=== PATIENT | female | born 1995 | race Two or more races ===

== ENCOUNTER 2018-04-20 13:19 | Emergency (ER) | payer MEDICAID, OTHER ==
[~2018-04-20] VITALS: Ht 160 cm; Wt 87.3 kg
[2018-04-20 14:35] LABS: BASOPHILS # (AUTO) 0.09 x10^3/uL (0-0.1); BASOPHILS % (AUTO) 1 % (0-1); EOSINOPHILS # (AUTO) 0.04 x10^3/uL (0-0.4); EOSINOPHILS % (AUTO) 0 % (1-7); LYMPHOCYTES # (AUTO) 3.36 x10^3/uL (1-3.4); LYMPHOCYTES % (AUTO) 25 % (22-44); MD NO; MEAN CORPUSCULAR HEMOGLOBIN 29.7 pg (27.0-34.8); MEAN CORPUSCULAR HGB CONC 33.3 g/dL (32.4-35.8); MEAN CORPUSCULAR VOLUME 89.1 fL (80-100); MEAN PLATELET VOLUME 8.3 fL (7.4-10.4); MONOCYTES # (AUTO) 1.03 x10^3/uL (0.2-0.8); MONOCYTES % (AUTO) 8 % (2-9); NEUTROPHILS % (AUTO) 66 % (42-75); PLATELET COUNT 386 x10^3/uL (130-400); RED BLOOD COUNT 4.95 x10^6/uL (3.82-5.3); RED CELL DISTRIBUTION WIDTH 14.1 % (9.6-15.2)
[2018-04-20 14:44] LABS: ALANINE AMINOTRANSFERASE 215 U/L (12-78); ALBUMIN 4.3 g/dL (3.4-5.0); ANION GAP 7 mmol/L (5-15); CALCIUM 8.6 mg/dL (8.5-10.1); CHLORIDE 104 mmol/L (98-107); CREATININE 0.86 mg/dL (0.55-1.02)
[2018-04-20] MEDS ORDERED: ONDANSETRON ODT 8 MG ONE (14:46)
[2018-04-20] MEDS ORDERED: KETOROLAC 30 MG/1 ML ONE (14:46)
[2018-04-20 14:48] LABS: ALKALINE PHOSPHATASE 70 U/L (45-117); TOTAL PROTEIN 8.7 g/dL (6.4-8.2)
[2018-04-20 14:50] LABS: CULTURE INDICATED? YES; MICROSCOPIC INDICATED
[2018-04-20] MEDS ORDERED: SODIUM CHLORIDE 0.9% 1,000ML IVBOLUS ONE (15:00)
[2018-04-20] MEDS ORDERED: ONDANSETRON ODT 8 MG PO ONE (15:00)
[2018-04-20] MEDS ORDERED: KETOROLAC 30 MG/1 ML IVPush ONE (15:00)
[2018-04-20 15:36] VITALS: BP 136/78
== END 2018-04-20 15:45 | disposition home or self-care (01) ==
LOC: ED 15:40
DX: R11.2 Nausea with vomiting, unspecified (principal); R10.84 Generalized abdominal pain
CPT/HCPCS: 36415; 80053; 81001; 83690; 84703; 85025; 87086; 96361; 96374; 99283; J1885; J7030; Q0162

== ENCOUNTER 2020-02-17 15:59 | Emergency (ER) | payer OTHER ==
[~2020-02-17] VITALS: Ht 160 cm; Wt 86.5 kg
--- NOTE | 2020-02-17 16:26 | NUR ---
PATIENT ARRIVES WITH A RASH THAT BEGAN YESTERDAY MORNING ON HER LEGS, THEN TODAY ITS ALL OVER HER BODY. SMALL RED RAISED BUMPS ALL OVER CHEST AND ARMS/TRUNK AND LEGS. ITCHY.
[2020-02-17] MEDS ORDERED: DIPHENHYDRAMINE 25 MG CAPSULE ONE (16:53)
[2020-02-17] MEDS ORDERED: DEXAMETHASONE 4 MG TABLET ONE (16:53)
[2020-02-17] MEDS ORDERED: FAMOTIDINE 20 MG TABLET ONE (16:55)
[2020-02-17 16:59] VITALS: BP 122/78
[2020-02-17] MEDS ORDERED: DIPHENHYDRAMINE 25 MG CAPSULE PO ONE (17:00)
[2020-02-17] MEDS ORDERED: FAMOTIDINE 20 MG TABLET PO ONE (17:00)
[2020-02-17] MEDS ORDERED: DEXAMETHASONE 4 MG TABLET PO ONE (17:00)
== END 2020-02-17 16:43 | disposition home or self-care (01) ==
LOC: ED 16:35
DX: L50.9 Urticaria, unspecified (principal)
CPT/HCPCS: 99283; Q0163

== ENCOUNTER 2020-03-31 16:54 | Inpatient (IN) | payer OTHER ==
[~2020-03-31] VITALS: Ht 160 cm; Wt 88.8 kg
--- NOTE | 2020-03-31 18:59 | NUR ---
SENIOR TRAINING AND DEVELOPMENT REP: PT. TO ROOM FROM LOBBY.
[2020-03-31 19:13] LABS: BASOPHILS % (AUTO) 1 % (0-1); EOSINOPHILS % (AUTO) 2 % (1-7); LYMPHOCYTES % (AUTO) 15 % (22-44); MEAN CORPUSCULAR HEMOGLOBIN 27.4 pg (27.0-34.8); MEAN CORPUSCULAR HGB CONC 32.8 g/dL (32.4-35.8); MONOCYTES % (AUTO) 7 % (2-9); NEUTROPHILS % (AUTO) 75 % (42-75); PLATELET COUNT 289 x10^3/uL (130-400); RED CELL DISTRIBUTION WIDTH 17.7 % (9.6-15.2)
[2020-03-31 19:14] LABS: MD NO
[2020-03-31 19:24] LABS: ALANINE AMINOTRANSFERASE 105 U/L (12-78); ALBUMIN 3.7 g/dL (3.4-5.0); ANION GAP 6 mmol/L (5-15); CALCIUM 8.6 mg/dL (8.5-10.1); CHLORIDE 101 mmol/L (98-107)
--- NOTE | 2020-03-31 19:27 | NUR ---
DR REECE AT BS FOR EXAM
[2020-03-31 19:30] LABS: ALKALINE PHOSPHATASE 85 U/L (45-117); CREATININE 0.73 mg/dL (0.55-1.02); TOTAL PROTEIN 8.9 g/dL (6.4-8.2)
[2020-03-31] MEDS ORDERED: MAALOX/HYOSCYAMINE/LIDOCAINE 45 ML BTL PO ONE (19:30)
[2020-03-31] MEDS ORDERED: MAALOX/HYOSCYAMINE/LIDOCAINE 45 ML BTL ONE (19:36)
--- NOTE | 2020-03-31 19:45 | NUR ---
EPIGASTRIC PAIN, RADIATING TO BACK; STARTED TUESDAY NOC. PAIN WORSE AFTER EATING TODAY. IBUPROFEN LAST. LAST ORAL: EGG & BANANA THIS MORNING - PAIN AFTER EATING. +NAUSEA, CONSTIPATION. DENIES VOMITING, DIARRHEA. LAST BM: EARLY TODAY: SOFT, BROWN.
[2020-03-31] MEDS ORDERED: ONDANSETRON 2MG/ML, 2ML IVPush ONE (20:30)
[2020-03-31] MEDS ORDERED: LACTATED RINGERS 1,000 ML IVBOLUS ONE (20:30)
[2020-03-31] MEDS ORDERED: morphine SULFATE 10 MG/ML, 1ML IVPush PRN (20:30)
[2020-03-31] MEDS ORDERED: DOCUSATE 100 MG CAPSULE PO PRN (20:30)
[2020-03-31] MEDS ORDERED: ONDANSETRON 2MG/ML, 2ML IVPush PRN (20:30)
[2020-03-31] MEDS ORDERED: LABETALOL 5MG/ML, 20ML IVPush PRN (20:30)
[2020-03-31] MEDS ORDERED: MORPHINE SULFATE 4 MG/ML, 1ML IVPush ONE (20:30)
[2020-03-31] MEDS ORDERED: ONDANSETRON 2MG/ML, 2ML ONE (20:42)
[2020-03-31] MEDS ORDERED: MORPHINE SULFATE 4 MG/ML, 1ML ONE (20:42)
--- NOTE | 2020-03-31 21:35 | NUR ---
AMBULATORY TO & FROM [facility] W/OUT INCIDENT: GAIT STEADY.
--- NOTE | 2020-03-31 22:01 | NUR ---
PT REPORT TO FAWAD DONG FOR ROOM 465
[2020-03-31 22:20] VITALS: BP 111/81
[2020-04-01] MEDS: SODIUM CHLORIDE 0.9% 1,000 ML IV SCH ×4 (00:18→22:47)
[2020-04-01] MEDS: HYDROcodone/APAP 5/325 TABLET PO PRN ×3 (02:11→14:31)
[2020-04-01 02:16] VITALS: BP 112/72
[2020-04-01 05:25] LABS: BASOPHILS % (AUTO) 1 % (0-1); EOSINOPHILS % (AUTO) 5 % (1-7); LYMPHOCYTES % (AUTO) 22 % (22-44); MEAN CORPUSCULAR HEMOGLOBIN 27.4 pg (27.0-34.8); MEAN CORPUSCULAR HGB CONC 32.7 g/dL (32.4-35.8); MEAN PLATELET VOLUME 8.1 fL (7.4-10.4); MONOCYTES % (AUTO) 7 % (2-9); NEUTROPHILS % (AUTO) 66 % (42-75); PLATELET COUNT 238 x10^3/uL (130-400); RED CELL DISTRIBUTION WIDTH 17.6 % (9.6-15.2)
[2020-04-01 05:33] LABS: MD NO
[2020-04-01 05:38] LABS: ALANINE AMINOTRANSFERASE 79 U/L (12-78); ALBUMIN 3.1 g/dL (3.4-5.0); ANION GAP 5 mmol/L (5-15); CALCIUM 8.1 mg/dL (8.5-10.1); CHLORIDE 107 mmol/L (98-107); CREATININE 0.69 mg/dL (0.55-1.02)
[2020-04-01 05:40] LABS: ALKALINE PHOSPHATASE 65 U/L (45-117); BILIRUBIN,TOTAL 1.7 mg/dL (0.2-1.0); TOTAL PROTEIN 7.7 g/dL (6.4-8.2)
[2020-04-01 08:45] VITALS: BP 112/79
[2020-04-01 14:40] VITALS: BP 104/71
[2020-04-01 21:07] VITALS: BP 117/77
[2020-04-02 02:19] VITALS: BP 102/63
[2020-04-02] MEDS: SODIUM CHLORIDE 0.9% 1,000 ML IV SCH (06:19)
[2020-04-02 08:57] VITALS: BP 123/85
[2020-04-02 13:57] VITALS: BP 126/89
== END 2020-04-02 16:15 | disposition home or self-care (01) | DRG 440 ==
LOC: ED 20:35 → EDIP 20:45 → 4NE 22:17 → DCLOUNGE 04-02 15:59
PROVIDERS: ADMIT Family Medicine; ATTEND Family Medicine
DX: K85.20 Alcohol induced acute pancreatitis without necrosis or infection (principal); F10.10 Alcohol abuse, uncomplicated; F32.9 Major depressive disorder, single episode, unspecified; K70.10 Alcoholic hepatitis without ascites; K76.0 Fatty (change of) liver, not elsewhere classified
CPT/HCPCS: 36415; 76700; 80053; 83690; 84703; 85025; G0378; J2405; J2270; J7030; J7120